=== PATIENT | female | born 1990 | race Hispanic/Latino ===

== ENCOUNTER 2020-01-26 07:46 | Outpatient (CLI) | payer OTHER, SELFPAY ==
[2020-01-26 09:04] LABS: Hematocrit 32.7 % (37.0-47.0); Hemoglobin 10.8 g/dL (12.0-15.0)
[2020-01-26 09:15] LABS: Glucose 1 Hour PP 50gm Dose 94 mg/dL
[2020-01-26 09:56] LABS: HIV 1/2 Ab P24 Ag Result Negative (Negative)
== END 2020-01-26 07:47 | disposition home or self-care (01) ==
PROVIDERS: PCP Emergency Medicine; Visit Provider Obstetrics & Gynecology
DX: Z34.80 Encounter for supervision of other normal pregnancy, unspecified trimester (principal)
CPT/HCPCS: 36415; 82947; 85014; 85018; 86703; G0432

== ENCOUNTER 2020-03-30 12:34 | Inpatient (IN) | payer OTHER, SELFPAY ==
[2020-03-29 12:30] VITALS: BMI 27.6
[2020-03-30] VITALS (100 sets, daily range): BP systolic 76–121; BP diastolic 38–97; PULSE 77–188; TEMP 36.4–36.9; O2SAT 97–100
--- NOTE | 2020-03-30 13:37 | P.HP_ITS ---
H&P: HPI History of Present Illness Chief complaint: SROM Narrative: 30 y/o G1 at 37 1/7 weeks here after leakage of fluid beginning at 0500 today. Some contractions. GBS neg. Opos, RI, HepBSAg neg, RPR neg, HIV neg, GCT normal. LMP 07/14/19 giving a due date of 04/19/2020, consitstent with US at 6w2d. Review of Systems Review of Systems: All systems reviewed & are unremarkable except as noted in HPI and below [facility] Surgical History Surgical History (Updated 03/30/20 @ 13:40 by Aron Adams MD) History of colon resection Family History Family History Mother Depression Sibling Depression Autism Cerebral palsy Social History Social History Substance use: never Spiritual care concerns: No Meds Home Medications and Allergies Home Medications Medication Instructions Recorded Confirmed Type PNV cmb#95-ferrous fumarate-FA 1 tablet PO DAILY 03/23/20 03/23/20 History [] famotidine [Pepcid AC] 10 mg PO PRN 03/23/20 History Allergies Allergy/AdvReac Type Severity Reaction Status Date / Time mushroom Allergy Itching Verified 03/23/20 15:39 Exam Const: Orientation/consciousness: patient oriented x3 Other: Well- developed, well-nourished female in no acute distress. Neck: Thyroid: thyroid normal Lymphatic: no lymphadenopathy noted (in neck, axilla or inguinal nodes) Resp: Effort & Inspection: normal respiratory effort Auscultation: clear to auscultation bilaterally Cardio: Rate: regular rate Rhythm: regular rhythm Heart sounds: S1 normal heart sound present and S2 normal heart sound present GI: Other: ABD: Soft, nontender, nondistended. Gravid. Bedside ultrasound exam by me confirms vertex presentation. NST reactive TOCO: contractions irregularly : General: Yes no CVA tenderness Other: Cervix closed / thick. RomPlus pos. Back/Spine/Pelvis: Back: no CVA tenderness Skin: General skin exam: normal color and no rashes or lesions noted Neuro: General: patient oriented x3 Extrem: Other: Extremities: nontender with no edema Psych: Mental Status: mental status grossly normal Affect: normal affect Assessment and Plan Assessment and plan (1) Spontaneous rupture of membranes: Status: Acute Assessment and Plan: Augment labor as needed. Anticipate .
[2020-03-30] MEDS: LACTATED RINGERS 1,000 ML 125 ML IV CONT ×3 (13:38→17:30)
[2020-03-30] MEDS: OXYTOCIN 30 UNITS/NS 500 ML 30 UNITS/500 ML BAG 6 UNITS IV CONT (13:39)
--- NOTE | 2020-03-30 13:41 | LDADM ---
This patient, Sallie Lopez, was admitted to Labor/Delivery/Recovery 103 on 03/30/20 at 12:34. Plans for labor, pain management and were discussed with patient. Patient/family oriented to hospital policies and general routines including ID bracelet, bed and alarms, visiting hours, pain management, procedures, bathroom and other care routines, personal items, smoking policy, room service/diet and guest tray routines, security routines, and visiting hours. Patient/Family are encouraged to report perceived risks to care and to ask questions if they do not understand what they are told or what they should do. See OBIX for further documentation.
[2020-03-30 13:50] LABS: Basophils Percent Auto 0.5 % (0.2-1.2); Eosinophils Absolute Auto 0.1 K/mm3 (0-0.3); Eosinophils Percent Auto 0.7 % (0-4.4); Hematocrit 35.7 % (37.0-47.0); Hemoglobin 12.1 g/dL (12.0-15.0); Immature Granulocyte Absolute 0.17 K/mm3 (0.00-0.031); Lymphocytes Absolute Auto 1.72 K/mm3 (0.9-3.2); Lymphocytes Percent Auto 20.5 % (18.3-44.2); Mean Corpuscular HGB Conc 33.9 g/dl (32-36); Mean Corpuscular Hemoglobin 32.7 pg (26-34); Mean Corpuscular Volume 96.5 fl (80-100); Mean Platelet Volume 11.5 fl (7.4-10.4); Monocytes Percent Auto 12.3 % (2.6-8.5); Neutrophils Absolute Auto 5.4 K/mm3 (1.3-6.7); Platelet Count Result 189 k/mm3 (150-375); White Blood Count 8.4 K/mm3 (4.5-10.0)
--- NOTE | 2020-03-30 14:49 | P.PNAN_ITS ---
Anes - Eval Pre Procedure Procedure: Labor Pain Management Date/Time: 03/30/20 14:49 Surgeon: Aron Adams MD Preop Diagnosis: Pain During Labor Pre Op Diagnosis: SROM Patient Data Age: 30 Gender: F Height: Weight: Last Vital Signs Pulse 77 03/30/20 14:45 BP 103/73 03/30/20 14:45 Allergies Allergy/AdvReac Type Severity Reaction Status Date / Time mushroom Allergy Itching Verified 03/23/20 15:39 Home Medications Medication Instructions Recorded Confirmed Type PNV cmb#95-ferrous fumarate-FA 1 tablet PO DAILY 03/23/20 03/30/20 History [] famotidine [Pepcid AC] 10 mg PO DAILY PRN 03/23/20 03/30/20 History Laboratory Tests 03/30/20 03/30/20 03/30/20 13:32 13:32 13:32 WBC 8.4 K/mm3 K/mm3 (4.5-10.0) RBC 3.70 M/mm3 L M/mm3 (4.2-5.4) Hgb 12.1 g/dL g/dL (12.0-15.0) Hct 35.7 % L % (37.0-47.0) MCV 96.5 fl fl (80-100) MCH 32.7 pg pg (26-34) MCHC 33.9 g/dl g/dl (32-36) RDW 15.0 % H % (11.5-14.5) Plt Count 189 k/mm3 k/mm3 (150-375) MPV 11.5 fl H fl (7.4-10.4) Immature Gran % (Auto) 2.0 % H % (0-0.5) Neut % (Auto) 64.0 % % (45.5-73.1) Lymph % (Auto) 20.5 % % (18.3-44.2) [place] % (Auto) 12.3 % H % (2.6-8.5) Eos % (Auto) 0.7 % % (0-4.4) Baso % (Auto) 0.5 % % (0.2-1.2) Lymph # (Auto) 1.72 K/mm3 K/mm3 (0.9-3.2) [place] # (Auto) 1.0 K/mm3 H K/mm3 (0.1-0.6) Eos # (Auto) 0.1 K/mm3 K/mm3 (0-0.3) Baso # (Auto) 0.0 K/mm3 K/mm3 (0.0-0.1) Abs Immat Gran (auto) 0.17 K/mm3 H K/mm3 (0.00-0.031) Absolute Neuts (auto) 5.4 K/mm3 K/mm3 (1.3-6.7) Absolute Nucleated RBC 0.0 K/mm3 K/mm3 (0.0-0.012) Nucleated RBC % 0.0 % % (0.0-0.2) RPR Pending Blood Type O Positive Antibody Screen Negative : gestational age (EDC 04/19/20) Patient hx anesthesia problems: none Family hx anesthesia problems: none Prior Surgeries: colon resection, wisdom teeth PMFSH Family History Family History Mother Depression Sibling Depression Autism Cerebral palsy Social History Social History Smoking status: Never smoker Substance use: never Spiritual care concerns: No Exam Day of Procedure 03/30/20 14:49
--- NOTE | 2020-03-30 21:37 | PM.OBPRVD ---
OB - Delivery Note Procedure Procedure: Patient pushed for a spontaneous vaginal delivery. The fetus was delivered atraumatically and placed on the maternal abdomen. The cord was clamped and cut after 1 minute of life. The cord was double clamped and cut and a segment of cord was collected for cord gases. Cord blood was collected for blood type and Coomb's testing. The placenta delivered spontaneously and was noted to be intact. The perineum was inspected and there was a 2nd degree perineal laceration. The laceration was repaired with 3-0 vicryl in the usual fashion. The uterus was firm and good hemostasis was noted. The patient and fetus were stable in the delivery room. Intrapartal events: None Induction method: none Delivery augmentation: pitocin Delivery monitor: external FHT Route of delivery: Episiotomy description: None Laceration description: Perineal - 2nd Degree Delivery repair: vicryl Specimen: No Estimated blood loss (mL): 300 Anesthesia type: Epidural Disposition: floor () Complications: No immediate complications Baby Date of : 03/30/20 Time of : 21:16 Weeks of gestation at delivery: 37 Infant gender: Female Weight (pounds): 7 Weight (ounces): 7 presentation: vertex position: Left Occiput Anterior Placenta delivery description: Spontaneous cord vessel description: 3 Vessels score one minute: 8 score five minutes: 9
[2020-03-30] MEDS: OXYTOCIN 30 UNITS/NS 500 ML 30 UNITS/500 ML BAG 125 UNITS IV CONT (22:10)
[2020-03-30] MEDS: IBUPROFEN 600 MG TABLET PO (22:35)
--- NOTE | 2020-03-31 00:03 | PC.NURSE ---
Patient transferred to post room # 291 via wheelchair. Support person present. Oriented to unit, room, information board, rooming in, admission packet and security measures. Patient verbalizes understanding.
[2020-03-31 00:10] VITALS: BP 106/58; PULSE 96; RESP 16; TEMP 37.1
[2020-03-31] MEDS: BENZOCAINE 20% AER SPR (*SP) 56 GM CAN 1 SPRAY TOPICAL (00:13)
[2020-03-31] MEDS: WITCH HAZEL 40 PADS 1 PAD TOPICAL (00:13)
--- NOTE | 2020-03-31 02:40 | PC.NURSE ---
Mother taken downstairs per wheelchair to see in level 2 nursery.
[2020-03-31 05:50] LABS: Hematocrit 31.9 % (37.0-47.0); Hemoglobin 10.6 g/dL (12.0-15.0)
[2020-03-31] MEDS: IBUPROFEN 600 MG TABLET PO (06:00)
--- NOTE | 2020-03-31 07:02 | PM.DS ---
DS: Admitting Diagnosis Admitting Diagnosis Admitting Diagnosis: term iup/downs DS: Summary Time Spent with Patient Time attestation: Total time spent providing and/or coordinating discharge services: Exam Const: General: no acute distress Eyes: General: appearance normal, both eyes and all related structures Neck: Neck: supple and no JVD Thyroid: thyroid normal Resp: Effort & Inspection: normal respiratory effort Auscultation: clear to auscultation bilaterally Cardio: Rate: regular rate Rhythm: regular rhythm GI: Inspection: non-distended GI Palp: Yes Soft to palpation, No Tenderness to palpation present (GI) and No Guarding due to palpation present (GI) Auscultation: normal bowel sounds : General: Yes bladder normal to palpation External Female Exam: normal external appearance Speculum Exam - Vagina: normal vaginal discharge and No vaginal bleeding Speculum Exam - Cervix: nontender Bimanual exam- vagina & uterus: bladder normal to palpation and No Cervical tenderness present OB/external & speculum: No vaginal bleeding Skin: General skin exam: no rashes or lesions noted Extrem: General: normal to inspection and no edema Psych: Mental Status: mental status grossly normal Affect: normal affect DS: Data Data Completed and Pending Labs on day of discharge: Labs from last 24 hours 03/31/20 03/30/20 03/30/20 04:33 13:32 13:32 WBC RBC Hgb 10.6 L Hct 31.9 L MCV MCH MCHC RDW Plt Count MPV Immature Gran % (Auto) Neut % (Auto) Lymph % (Auto) [place] % (Auto) Eos % (Auto) Baso % (Auto) Lymph # (Auto) [place] # (Auto) Eos # (Auto) Baso # (Auto) Abs Immat Gran (auto) Absolute Neuts (auto) Absolute Nucleated RBC Nucleated RBC % RPR Pending Blood Type O Positive Antibody Screen Negative 03/30/20 13:32 WBC 8.4 RBC 3.70 L Hgb 12.1 Hct 35.7 L MCV 96.5 MCH 32.7 MCHC 33.9 RDW 15.0 H Plt Count 189 MPV 11.5 H Immature Gran % (Auto) 2.0 H Neut % (Auto) 64.0 Lymph % (Auto) 20.5 [place] % (Auto) 12.3 H Eos % (Auto) 0.7 Baso % (Auto) 0.5 Lymph # (Auto) 1.72 [place] # (Auto) 1.0 H Eos # (Auto) 0.1 Baso # (Auto) 0.0 Abs Immat Gran (auto) 0.17 H Absolute Neuts (auto) 5.4 Absolute Nucleated RBC 0.0 Nucleated RBC % 0.0 RPR Blood Type Antibody Screen Discharge Plan Discharge Attending physician on discharge: Peterson Singh Discharging Clinician: Db Bailey Patient Disposition: Home, Self-Care Activity: may shower, no straining and pelvic rest Diet: heart healthy Patient Instructions: Antibiotic Form Stand Alone Forms: General Discharge Information Follow-up/Referrals: Db Bailey MD [Physician] - Aron Adams MD [Physician] - Discharge Medications: Continued famotidine [Pepcid AC] 10 mg Tablet 10 mg PO DAILY PRN (Reason: Heartburn) RF: 0 PNV cmb#95-ferrous fumarate-FA [] 28 mg iron- 800 mcg Tablet 1 tablet PO DAILY RF: 0 Date of admission: 03/30/20 12:34 Primary Care Provider: Cipriano Flores Admitting Provider: Aron Adams Attending physician on admission: Aron Adams
--- NOTE | 2020-03-31 07:04 | PM.OBPNVD ---
OB - PN: Subj Subjective Date/time seen: 03/31/20 07:04 Patient comments: no complaints and pain well controlled Narrative: baby transferred OB - PN: Obj Data Labs CBC & Chem 7: 03/31/20 04:33 Labs: Laboratory Results - last 24 hr 03/30/20 03/30/20 03/31/20 13:32 13:32 04:33 WBC 8.4 RBC 3.70 L Hgb 12.1 10.6 L Hct 35.7 L 31.9 L MCV 96.5 MCH 32.7 MCHC 33.9 RDW 15.0 H Plt Count 189 MPV 11.5 H Immature Gran % (Auto) 2.0 H Neut % (Auto) 64.0 Lymph % (Auto) 20.5 [place] % (Auto) 12.3 H Eos % (Auto) 0.7 Baso % (Auto) 0.5 Lymph # (Auto) 1.72 [place] # (Auto) 1.0 H Eos # (Auto) 0.1 Baso # (Auto) 0.0 Abs Immat Gran (auto) 0.17 H Absolute Neuts (auto) 5.4 Absolute Nucleated RBC 0.0 Nucleated RBC % 0.0 Blood Type O Positive Antibody Screen Negative OB - PN A/P Plan day: 1 Plan: routine care, discharge home and follow up 6 weeks Time Spent With Patient Time: Total time spent is greater than 50% in coordination of care (as documented) at patient's floor/unit and/or counseling patient: Time with patient: less than 15 minutes Review of Systems Review of Systems: All systems reviewed & are unremarkable except as noted in HPI and below Exam Const: General: no acute distress Eyes: General: appearance normal, both eyes and all related structures Neck: Neck: supple and no JVD Thyroid: thyroid normal Resp: Effort & Inspection: normal respiratory effort Auscultation: clear to auscultation bilaterally Cardio: Rate: regular rate Rhythm: regular rhythm GI: Inspection: non-distended GI Palp: Yes Soft to palpation, No Tenderness to palpation present (GI) and No Guarding due to palpation present (GI) Auscultation: normal bowel sounds : General: Yes bladder normal to palpation External Female Exam: normal external appearance Speculum Exam - Vagina: normal vaginal discharge and No vaginal bleeding Speculum Exam - Cervix: nontender Bimanual exam- vagina & uterus: bladder normal to palpation and No Cervical tenderness present OB/external & speculum: No vaginal bleeding Skin: General skin exam: no rashes or lesions noted Extrem: General: normal to inspection and no edema Psych: Mental Status: mental status grossly normal Affect: normal affect
[2020-03-31 07:56] LABS: Rapid Plasma Reagin Non-Reactive (NonReactive)
[2020-03-31 08:35] VITALS: BP 106/71; PULSE 96; RESP 18; TEMP 37.3; O2SAT 99
[2020-03-31] MEDS: DOCUSATE SODIUM 100 MG CAPSULE PO (08:38)
[2020-03-31] MEDS: ACETAMINOPHEN 325 MG TABLET 650 MG PO (08:38)
[2020-03-31] MEDS: MULTIVIT/MIN/PREN/FOL AC/IRON TABLET 1 TAB PO (08:38)
== END 2020-03-31 09:45 | disposition home or self-care (01) | DRG 807 ==
LOC: ANHOB2 03-31 07:30 → ANHLDR 04-01 13:07 → ANHOB2 04-01 13:07
PROVIDERS: Student in an Organized Health Care Education/Training Program; Admitting Provider Obstetrics & Gynecology; PCP Emergency Medicine; Visit Provider Obstetrics & Gynecology
DX: O99.62 Diseases of the digestive system complicating childbirth (principal); Z37.0 Single live birth; Z3A.37 37 weeks gestation of pregnancy; K21.9 Gastro-esophageal reflux disease without esophagitis; O70.1 Second degree perineal laceration during delivery; O36.8330 Maternal care for abnormalities of the fetal heart rate or rhythm, third trimester, not applicable or unspecified
CPT/HCPCS: 36415; 85014; 85018; 85025; 86592; 86850; 86900; 86901; A9270; J2590; J2795; J7120

== ENCOUNTER 2020-05-23 16:51 | Outpatient (CLI) | payer OTHER, SELFPAY ==
--- NOTE | ~2020-05-23 | US_ITS ---
US breast LT complete DATE: 05/23/2020 17:26 INDICATION: Left breast nodularity TECHNIQUE: Real-time and color flow imaging of the complete left breast COMPARISON: 11/03/2019 complete left breast ultrasound FINDINGS: There are cysts scattered throughout the left breast, largest measuring 3.3 mm. No suspicious solid lesion or shadowing is evident. IMPRESSION: BI-RADS Category 2: Benign Reviewed, dictated and finalized at [facility]. Reviewed, dictated and finalized at [facility]. IMPRESSION: BI-RADS Category 2: Benign
== END 2020-05-23 16:52 | disposition home or self-care (01) ==
PROVIDERS: PCP Obstetrics & Gynecology; Visit Provider Obstetrics & Gynecology
DX: R92.8 Other abnormal and inconclusive findings on diagnostic imaging of breast (principal)
CPT/HCPCS: 76641

== ENCOUNTER 2022-07-16 13:56 | Outpatient (CLI) | payer BC, SELFPAY ==
--- NOTE | ~2022-07-16 | CT_ITS ---
EXAMINATION: CT abdomen pelvis w con DATE: 07/16/2022 14:28 INDICATION: Periumbilical abdominal pain, nausea and vomiting. History of small bowel obstruction and colon resection. TECHNIQUE: Computed tomography (CT) of the abdomen and pelvis was performed with 100 CC Omnipaque 350 intravenous contrast. Automated exposure control and iterative reconstruction technique were employe d. Exam dose: 312.80 mGy-cm total exam DLP. COMPARISON: 08/13/2019 complete abdominal ultrasound examination FINDINGS: Bilateral fat-containing foramen of Bochdalek hernias. Normal heart size. No pericardial or pleural effusion. The lung bases are clear. The liver, gallbladder, bile ducts, spleen, pancreas, and adrenal glands and kidneys are unremarkable . No urinary tract calculus or hydroureteronephrosis. Normal caliber of the abdominal aorta. No intraperitoneal or retroperitoneal or pelvic mass lesion or adenopathy or ascites. Uterus, adnexal areas and urinary bladder are unremarkable. An approximately 6.7 mm calcified appendicolith is noted, with appendiceal dilatation up to approxima tely 12 mm, with some enhancement of the appendiceal wall. There is periappendiceal fat stranding/inf lammation. Possible small approximately 5 x 8 mm abscess along the right side of the distal appendix. No intraperitoneal free air is detected. Small fat-containing abdominal hernia IMPRESSION: Acute appendicitis with prominent periappendiceal inflammation, possible small perforate d abscess approximately 5 x 8 mm dimension on the right near the distal aspect of the appendix Dr. Morelos notified Dr. Flores's general medical practitionerAdiel Nguyen of the findings of acute appendicitis and possible rupture near the tip by telephone on 07/16/2022 at 1445 hours. Reviewed, dictated and finalized at [facility]. Reviewed, dictated and finalized at location [facility]. IMPRESSION: Acute appendicitis with prominent periappendiceal inflammation, po ssible small perforated abscess approximately 5 x 8 mm dimension on the right n ear the distal aspect of the appendix Dr. Morelos notified Dr. Flores's general medical practitionerAdiel Nguyen of the findings of acute amrit endicitis and possible rupture near the tip by telephone on 07/16/2022 at 1445 h ours.
== END 2022-07-16 13:57 | disposition home or self-care (01) ==
PROVIDERS: PCP Emergency Medicine; Visit Provider Emergency Medicine
DX: K35.890 Other acute appendicitis without perforation or gangrene (principal)
CPT/HCPCS: 74177; Q9967

== ENCOUNTER 2022-07-16 14:59 | Day surgery (SDC) | payer BC, SELFPAY ==
[2022-07-16] VITALS (9 sets, daily range): BP systolic 95–132; BP diastolic 52–83; PULSE 70–116; RESP 14–20; TEMP 36.6–37.2; O2SAT 98–100
--- NOTE | 2022-07-16 15:30 | ED.ABDPAIN ---
HPI - Abdominal Pain General Chief Complaint: Abdominal Pain Stated Complaint: CT SCAN SHOWS RUPTURED APPENDIX Time Seen by Provider: 07/16/22 15:00 Source: RN notes reviewed History of Present Illness HPI narrative: Patient presents emergency department from outpatient radiology for appendicitis. Patient has been having abdominal pain for the past 2 days pain is located in the lower mid abdomen described as aching in nature and does not radiate patient states she has been have associated nausea and vomiting with the symptoms. She denies any fevers or chills chest pain or shortness of breath patient and her PCP and had an outpatient CT scan today showing appendicitis with a questionable small perforation and was sent to the ER for further evaluation Related Data Home Medications Medication Instructions Recorded Confirmed famotidine 10 mg tablet (Pepcid AC) 10 mg PO DAILY PRN Heartburn 03/23/20 03/30/20 vit no.95-ferrous 1 tablet PO DAILY 03/23/20 03/30/20 fumarate 28 mg-folic acid 800 mcg tablet () Allergies Allergy/AdvReac Type Severity Reaction Status Date / Time mushroom Allergy Itching Verified 07/16/22 15:16 Review of Systems Review of Systems: Gen.: Denies fevers or chills ENT: Denies congestion Respiratory: Denies shortness of breath or cough CV: Denies chest pain or palpitations GI: HPI denies burning, urgency, frequency or hematuria Musculoskeletal: Denies back pain or muscle pain Neuro: Denies numbness, tingling, weakness or focal weakness Skin: Denies rash Except as documented, all other systems reviewed and negative PMFSH Past Medical History Medical History (Updated 07/16/22 @ 16:32 by Ray Iverson DO) Patient denies significant medical history Surgical History Surgical History (Updated 07/16/22 @ 16:12 by Tr Fitch DO) Hx of resection of small bowel Family History Family History Mother Depression Sibling Depression Autism Cerebral palsy Social History Social History Smoking status: Never smoker Substance use: never Spiritual care concerns: No Exam Narrative: APPEARANCE: No acute distress, nontoxic, resting in bed HEENT: Normocephalic, atraumatic, OMM RESPIRATORY: No respiratory distress, clear to auscultation bilaterally with no rhonchi wheezing or rales CARDIOVASCULAR: RRR s murmur ABDOMINAL: Soft nondistended tender palpation right lower quadrant and left lower quadrant no tenderness right upper quadrant left upper quadrant no rebound or guarding MUSCULOSKELETAl: Moves all extremities. No clubbing, cyanosis or edema. NEURO: Awake and alert. Following commands, speech normal, no focal deficits SKIN:: Warm, dry. Normal Color PSYCHIATRIC: Normal affect/mood Course Course Emergency Course: Reviewed patient's CT scan from earlier today showing appendicitis with possible small perforation Discussed with Dr. Fitch will plan to take to the OR today Patient plan for surgery all questions Vital Signs Vital signs: Vital Signs Temperature 98.9 F 07/16/22 15:12 Pulse Rate 116 H 07/16/22 15:12 Respiratory Rate 14 07/16/22 15:12 Blood Pressure 130/83 07/16/22 15:12 Pulse Oximetry 98 07/16/22 15:12 Oxygen Delivery Room Air 07/16/22 15:12 Temperature 98.9 F 07/16/22 15:12 Pulse Rate 70 07/16/22 15:56 Respiratory Rate 18 07/16/22 15:56 Blood Pressure 132/68 07/16/22 15:56 Pulse Oximetry 99 07/16/22 15:56 Oxygen Delivery Room Air 07/16/22 15:12 MDM - Abdominal Pain Lab Data Result diagrams: 07/16/22 15:25 07/16/22 15:25 Labs: Lab Results 07/16/22 07/16/22 07/16/22 Range/Units 15:25 15:25 15:25 WBC 18.9 H (4.5-10.0) K/mm3 RBC 4.51 (4.2-5.4) M/mm3 Hgb 14.9 D (12.0-15.0) g/dL Hct 45.0 (37.0-47.0) % MCV 99.8
[2022-07-16 15:34] LABS: Basophils Absolute Auto 0.1 K/mm3 (0.0-0.1); Basophils Percent Auto 0.3 % (0.2-1.2); Eosinophils Percent Auto 0.1 % (0-4.4); Hemoglobin 14.9 g/dL (12.0-15.0); Immature Granulocyte Absolute 0.08 K/mm3 (0.00-0.031); Immature Granulocyte Percent A 0.4 % (0-0.5); Lymphocytes Absolute Auto 1.22 K/mm3 (0.9-3.2); Lymphocytes Percent Auto 6.5 % (18.3-44.2); Mean Corpuscular HGB Conc 33.1 g/dl (32-36); Mean Corpuscular Volume 99.8 fl (80-100); Mean Platelet Volume 10.8 fl (7.4-10.4); Monocytes Absolute Auto 1.8 K/mm3 (0.1-0.6); Monocytes Percent Auto 9.3 % (2.6-8.5); Neutrophils Absolute Auto 15.8 K/mm3 (1.3-6.7); Neutrophils Percent Auto 83.4 % (45.5-73.1); Platelet Count Result 214 k/mm3 (150-375); Red Blood Count 4.51 M/mm3 (4.2-5.4); White Blood Count 18.9 K/mm3 (4.5-10.0)
[2022-07-16] MEDS: ONDANSETRON INJ 4 MG/2 ML VIAL IV PUSH (15:34)
[2022-07-16] MEDS: MORPHINE SULFATE (*CRX) 4 MG/ML INJ IV PUSH (15:34)
[2022-07-16] MEDS: SODIUM CHLORIDE 0.9% IV 1,000 ML 999 ML IV CONT (15:35)
[2022-07-16 15:41] LABS: Appearance Urine Clear (Clear); Bilirubin Urine Negative (Negative); Blood Urine 1+ (Negative); Color Urine Yellow (Yellow); Glucose Urine UA Negative (Negative); Ketones Urine 3+ mg/dL (Negative); Leukocyte Esterase Ur Negative LEU/UL (Negative); Nitrate Urine Negative (Negative); Protein Urine 1+ mg/dL (Negative); Urobilinogen Urine 0.2 mg/dL (<2.0)
[2022-07-16 15:49] LABS: Bacteria Urine Trace /hpf; Mucus Urine Few /lpf; Squamous Epithelial Cell Urine Many /hpf (Few); WBC Urine 0-3 /hpf
[2022-07-16 15:51] LABS: Add Urine Microscopic? YES
--- NOTE | 2022-07-16 16:10 | WPDHPUPDATE1 ---
History and Physical Update Update Date/Time: 07/16/22 16:10 History and Physical has been reviewed, including an updated exam of the patient. There are NO changes in the patient's condition. Risks, benefits, and alternatives have been discussed and questions answered. Patient agrees to proceed with procedure.
--- NOTE | 2022-07-16 16:10 | PM.IMHP ---
H&P: HPI History of Present Illness Date/Time: 07/16/22 16:10 Chief Complaint: Right lower quadrant pain Narrative: This is a 32-year-old woman who presented with right lower quadrant pain that started 2 days ago. She thought she had gotten food poisoning at 1st and was experiencing pain with nausea and vomiting. The pain persisted and was localizing more to the right lower quadrant. She denies any fevers. She went to her PCP this morning and was sent for a CT which showed evidence of acute appendicitis with possible perforation. She was then sent to the emergency department for further treatment. Review of Systems Review of Systems: All systems reviewed & are unremarkable except as noted in HPI and below Eyes: Eyes: Denies change in vision ENT: Denies hearing loss, Denies neck pain and Denies sore throat Cardiovascular: Cardiovascular: Denies chest pain and Denies dyspnea Respiratory: Respiratory: Denies cough, Denies dyspnea and Denies wheezing Genitourinary: Genitourinary: Denies hematuria and Denies dysuria Musculoskeletal: Musculoskeletal: Denies arthralgias, Denies joint swelling and Denies neck pain Allergic/Immunologic: Allergic/Immunologic: Denies wheezing PMFSH Past Medical History Medical History (Updated 07/16/22 @ 16:14 by Tr Fitch DO) Patient denies significant medical history Surgical History Surgical History (Updated 07/16/22 @ 16:12 by Tr Fitch DO) Hx of resection of small bowel Family History Family History Mother Depression Sibling Depression Autism Cerebral palsy Social History Social History Smoking status: Never smoker Substance use: never Spiritual care concerns: No Meds Home Medications and Allergies Home Medications Medication Instructions Recorded Confirmed Type famotidine 10 mg tablet (Pepcid AC) 10 mg PO DAILY PRN Heartburn 03/23/20 03/30/20 History vit no.95-ferrous 1 tablet PO DAILY 03/23/20 03/30/20 History fumarate 28 mg-folic acid 800 mcg tablet () ibuprofen 600 mg tablet 600 mg PO Q6H PRN cramps #30 tabs 03/31/20 Rx Allergies Allergy/AdvReac Type Severity Reaction Status Date / Time mushroom Allergy Itching Verified 07/16/22 15:16 Vital Signs Vital Signs - 24 hr 07/16/22 15:12 07/16/22 15:56 Temperature 37.2 C Pulse Rate 116 H 70 Respiratory Rate 14 18 Blood Pressure 130/83 132/68 Pulse Oximetry 98 99 Oxygen Delivery Room Air Exam Const: General: alert; No acute distress Orientation/consciousness: patient oriented x3 Limitations: no limitations HENMT: Head: normocephalic and atraumatic Ears: hearing grossly normal bilaterally General nose exam: Normal external nose present and Normal nares present Mouth: Yes Normal oral and palatal mucosa present and Yes moist mucous membranes Eyes: General: appearance normal, both eyes and all related structures Conjunctivae: conjunctivae normal Sclera: sclerae normal Pupils: Equal, round and reactive pupils present EOM: EOMs intact bilaterally Neck: Neck: normal visual inspection, full ROM, no lymphadenopathy, supple and no JVD Lymphatic: no lymphadenopathy noted Chest: Chest palpation & inspection: normal inspection of the chest Resp: Effort & Inspection: normal respiratory effort and able to speak in complete sentences Auscultation: clear to auscultation bilaterally Percussion: percussion normal Cardio: Jugular venous distension: no JVD Rate: regular rate Rhythm: regular rhythm Heart sounds: S1 normal heart sound present and S2 normal heart sound present Peripheral pulses: Peripheral pulses 2+ throughout GI: Inspection: normal to inspection GI Palp: Yes Soft to palpation, Yes Tenderness to palpation present (GI) (RLQ), Yes Guarding due to palpation present (GI), No Hernia present and No Rebound tenderness prese
[2022-07-16] MEDS: LACTATED RINGERS 1,000 ML 30 ML IV CONT (16:35)
--- NOTE | 2022-07-16 16:35 | WPDANESEPPF ---
Anes - Initial Pre Proc Eval Procedure: Operation Date: 07/16/22 17:00 Proposed Procedures p Laparoscopic Appendectomy - Tr Fitch DO Date/Time: 07/16/22 16:35 Surgeon: Tr Fitch DO Pre Op Diagnosis: CT SCAN SHOWS RUPTURED APPENDIX Patient Data Age: 32 Gender: F Height: 1.6 m Weight: 62.7 kg Last Vital Signs Temp 37.2 C 07/16/22 15:12 Pulse 70 07/16/22 15:56 Resp 18 07/16/22 15:56 BP 132/68 07/16/22 15:56 Pulse Ox 99 07/16/22 15:56 O2 Del Method Room Air 07/16/22 15:12 Allergies Allergy/AdvReac Type Severity Reaction Status Date / Time mushroom Allergy Itching Verified 07/16/22 15:16 Home Medications Medication Instructions Recorded Confirmed Type famotidine 10 mg tablet (Pepcid AC) 10 mg PO DAILY PRN Heartburn 03/23/20 03/30/20 History vit no.95-ferrous 1 tablet PO DAILY 03/23/20 03/30/20 History fumarate 28 mg-folic acid 800 mcg tablet () ibuprofen 600 mg tablet 600 mg PO Q6H PRN cramps #30 tabs 03/31/20 Rx Laboratory Tests 07/16/22 07/16/22 07/16/22 15:25 15:25 15:25 WBC 18.9 K/mm3 H K/mm3 (4.5-10.0) RBC 4.51 M/mm3 M/mm3 (4.2-5.4) Hgb 14.9 g/dL D g/dL (12.0-15.0) Hct 45.0 % % (37.0-47.0) MCV 99.8 fl fl (80-100) MCH 33.0 pg pg (26-34) MCHC 33.1 g/dl g/dl (32-36) RDW 13.0 % % (11.5-14.5) Plt Count 214 k/mm3 k/mm3 (150-375) MPV 10.8 fl H fl (7.4-10.4) Immature Gran % (Auto) 0.4 % % (0-0.5) Neut % (Auto) 83.4 % H % (45.5-73.1) Lymph % (Auto) 6.5 % L % (18.3-44.2) [place] % (Auto) 9.3 % H % (2.6-8.5) Eos % (Auto) 0.1 % % (0-4.4) Baso % (Auto) 0.3 % % (0.2-1.2) Lymph # (Auto) 1.22 K/mm3 K/mm3 (0.9-3.2) [place] # (Auto) 1.8 K/mm3 H K/mm3 (0.1-0.6) Eos # (Auto) 0.0 K/mm3 K/mm3 (0-0.3) Baso # (Auto) 0.1 K/mm3 K/mm3 (0.0-0.1) Abs Immat Gran (auto) 0.08 K/mm3 H K/mm3 (0.00-0.031) Absolute Neuts (auto) 15.8 K/mm3 H K/mm3 (1.3-6.7) Absolute Nucleated RBC 0.0 K/mm3 K/mm3 (0.0-0.012) Nucleated RBC % 0.0 % % (0.0-0.2) Sodium Pending Potassium Pending Chloride Pending Carbon Dioxide Pending Anion Gap Pending BUN Pending Creatinine Pending Estim Creat Clear Calc Pending Estimated GFR Pending Glucose Pending Calcium Pending Total Bilirubin Pending AST Pending ALT Pending Alkaline Phosphatase Pending Total Protein Pending Albumin Pending Urine Color Yellow (Yellow) Urine Appearance Clear (Clear) Urine pH 6.0 (5.0-9.0) Ur Specific [place] 1.010 (1.001-1.035) Urine Protein 1+ mg/dL H mg/dL (Negative) Urine Glucose (UA) Negative mg/dL mg/dL (Negative) Urine Ketones 3+ mg/dL H mg/dL (Negative) Ur Blood (Man) 1+ H (Negative) Urine Nitrate Negative (Negative) Urine Bilirubin Negative (Negative) Urine Urobilinogen 0.2 mg/dL mg/dL (<2.0) Leukocyte Esterase Rfl Negative LIBORIO/UL LIBORIO/UL (Negative) Urine RBC 6-10 /hpf H /hpf (0-2) Urine WBC 0-3 /hpf /hpf Ur Squamous Epith Cells Many /hpf H /hpf (Few) Urine Bacteria Trace /hpf /hpf Urine Mucus Few /lpf H /lpf Patient hx anesthesia problems: none Family hx anesthesia problems: none Results Review: All pre-operative results and documents have been reviewed as part of the pre-operative evaluation. [facility] Past Medical History Medical History (Updated 07/16/22 @ 16:32 by Ray Iverson DO) Patient denies si
[2022-07-16] MEDS: BUPIVACAINE/EPINEPHRINE 0.25% 50 ML VIAL 30 ML INFILTRATE (17:01)
[2022-07-16] MEDS: KETOROLAC 30 MG/ML VIAL (*BKC) IV PUSH (17:18)
--- NOTE | 2022-07-16 17:35 | W.PM.PROC2 ---
Procedure Note - Detailed Date of Procedure 07/16/22 Pre-op Diagnosis Acute appendicitis Post-op Diagnosis Same Procedure Performed Laparoscopic appendectomy Surgeon Tr Fitch, DO Anesthesia General and Local (0.5% bupivacaine with epinephrine) Indications This is a 32-year-old woman who presented to the emergency department with right lower quadrant abdominal pain that started about 2 days ago. Her pain was gradually worsening and she was experiencing nausea and vomiting yesterday. She was unable to get any relief from the pain at home, therefore she presented to her PCP this morning and a CT of her abdomen and pelvis was performed. This showed evidence of acute appendicitis. She was referred to the emergency department for further treatment. Discussions were made with the patient about treatment options and decision was made to proceed with urgent laparoscopic appendectomy, possible open. Findings Laparoscopic appendectomy was performed. The patient was found to have a few adhesions near the midline abdominal wall involving omentum. These adhesions came down easily with scissors with electrocautery. I was then able to identify the appendix in the right lower quadrant. This appeared indurated and dilated. There was some early signs of necrosis/gangrene but no clear evidence of perforation or abscess. The base of the appendix appeared healthy and viable. Upon looking into the pelvis, there was no evidence of abscess or purulence fluid in pelvis. There was 1 small area near the left pelvic wall that appeared to have possible endometriosis. No other pelvic abnormalities were noted. The appendix was removed and sent to the lab for pathology. Description of Procedure Procedure as well as risks, benefits, and alternatives were explained to the patient. The patient agreed to proceed. Written consent was obtained and placed in chart prior to procedure. The patient was brought back to surgical suite. She was placed supine on operating table. Time-out was done to confirm the patient and procedure. The patient was then intubated by the Anesthesia Department. Her abdomen was prepped and draped in sterile fashion using chlorhexidine prep. A 12 mm incision was made at the inferior portion of the umbilicus. Blunt dissection was carried out down to the linea alba. The linea alba was then incised using a 15 blade scalpel. Then bluntly entered into the peritoneal cavity. A 12 mm trocar was then inserted, and carbon dioxide insufflation was used to create a pneumoperitoneum. The camera was inserted and the abdomen was inspected. No immediate abnormalities were identified. The patient was then placed in slight Trendelenburg position and rotated to the left. A 5 mm incision was made in the suprapubic region in midline and a 5 mm trocar was inserted under direct visualization. A 5 mm incision was made in the left lower quadrant and a 5 mm trocar was inserted under direct visualization. The right lower quadrant was carefully inspected. The cecum was identified and then this was traced back to the appendix. The appendix was identified and grasped at the mesoappendix and lifted anteriorly. Careful blunt dissection was carried out at the base of the appendix through the mesoappendix using a [place] grasper. An Endo-TENZIN 45 mm blue load stapler was then advanced across the base of the appendix and clamped and fired. A white reload was then clamped across the mesoappendix and fired. This freed up our appendix completely. It was then placed in an EndoCatch bag and removed through the umbilical port. The staple lines were then inspected. Hemostasis appeared adequate and the staple lines appeared secure. The area was then irrigated with sterile saline. The pelvis was then carefully inspected and irrigated with sterile saline as well and the remainder of the abdomen was carefully inspected. The patient was then flattened out in bed. One final inspection wa
[2022-07-16] MEDS: oxyCODONE HCL (*CRX) 5 MG TAB IR PO (18:44)
== END 2022-07-16 19:15 | disposition home or self-care (01) ==
LOC: ANHED 15:10 → ANHSURGERY 15:10
PROVIDERS: Emergency Provider Emergency Medicine; PCP Emergency Medicine; Visit Provider Surgery
PROC: 0DTJ4ZZ Resection of Appendix, Percutaneous Endoscopic Approach (ICD-10-PCS; CPT 44970; principal; 2022-07-16 17:00)
DX: K35.80 Unspecified acute appendicitis (principal)
CPT/HCPCS: 44970; 36415; 81001; 81025; 85025; 88304; 96374; 96375; 99285; A9270; J0330; J1100; J1885; J2250; J2270; J2405; J2543; J3010; J7030; J7120

== ENCOUNTER 2023-05-21 09:48 | Observation (INO) | payer BC, SELFPAY ==
--- NOTE | 2023-05-21 09:48 | OBADM ---
This patient, Sallie Lopez, admitted to the OB room OB Post 116 for observation. Patient/family oriented to hospital policies and general routines including ID bracelet, bed and alarms, visiting hours, pain management, procedures, bathroom and other care routines, personal items, smoking policy, room service/diet, and visiting hours. Patient/Family are encouraged to report perceived risks to care and to ask questions if they do not understand what they are told or what they should do.
[2023-05-21 10:15] VITALS: BMI 29.0
[2023-05-21 10:20] VITALS: BP 110/65; PULSE 93
--- NOTE | 2023-05-21 12:10 | PC.NURSE ---
Dr. Soren Willis returned page. Informed of contractions seen on monitor q 2-8 min. Pt denies feeling contractions, except maybe an occasional one. Reactive tracing. Orders received.
[2023-05-21] MEDS: TERBUTALINE SULFATE 1 MG/ML VIAL 0.25 MG SUB-Q (12:27)
--- NOTE | 2023-05-21 16:17 | PM.OBTRLD ---
OB - Triage/Final Diagnosis Visit Information Date of evaluation: 05/21/23 Reason for evaluation: threatened labor Comments/Additional reasons for admission: I have assessed the risk for this patient, Sallie Lopez, and determined that she would benefit from observation care. Evaluation Vital signs: Vital Signs - 24 hr 05/21/23 10:20 Pulse Rate 93 Blood Pressure 110/65
== END 2023-05-21 14:10 | disposition home or self-care (01) ==
PROVIDERS: Admitting Provider Obstetrics & Gynecology; PCP Emergency Medicine; Visit Provider Obstetrics & Gynecology
DX: O47.9 False labor, unspecified (principal); O30.90 Multiple gestation, unspecified, unspecified trimester; Z3A.00 Weeks of gestation of pregnancy not specified
CPT/HCPCS: 96372; G0378; G0379; J3105

== ENCOUNTER 2023-05-24 15:44 | Observation (INO) | payer BC, SELFPAY ==
--- NOTE | 2023-05-24 15:44 | LDADM ---
This patient, Sallie Lopez, was admitted to OB Post 116 on 05/24/23 at 15:44. Plans for labor, pain management and were discussed with patient. Patient/family oriented to hospital policies and general routines including ID bracelet, bed and alarms, visiting hours, pain management, procedures, bathroom and other care routines, personal items, smoking policy, room service/diet and guest tray routines, infant security routines, and visiting hours. Patient/Family are encouraged to report perceived risks to care and to ask questions if they do not understand what they are told or what they should do. See OBIX for further documentation.
[2023-05-24 16:12] VITALS: BP 104/64; PULSE 103
[2023-05-24 16:15] VITALS: BP 106/60; PULSE 108
[2023-05-24] MEDS: TERBUTALINE SULFATE 1 MG/ML VIAL 0.25 MG SUB-Q (17:19)
[2023-05-24 17:27] LABS: Fetal Fibronectin Negative
--- NOTE | 2023-05-24 18:19 | PC.NURSE ---
Discharge instructions reviewed with patient. labor precautions reviewed with patient. Patient states understanding of all discharge instructions. Patient instructed to follow up with Dr. Adams this week as scheduled. Patient states understanding and denies questions.
--- NOTE | 2023-05-28 08:33 | PM.OBTRLD ---
OB - Triage/Final Diagnosis Visit Information Comments/Additional reasons for admission: I have assessed the risk for this patient, Sallie Lopez, and determined that she would benefit from observation care. Evaluation Laboratory results: Laboratory Tests 05/24/23 16:42 Fibronectin Negative Final Diagnosis (1) contractions: Code(s): O47.00 - False labor before 37 completed weeks of gestation, unspecified trimester Status: Acute
== END 2023-05-24 18:19 | disposition home or self-care (01) ==
PROVIDERS: Obstetrics & Gynecology; Admitting Provider Obstetrics & Gynecology; PCP Emergency Medicine; Visit Provider Obstetrics & Gynecology
DX: O47.03 False labor before 37 completed weeks of gestation, third trimester (principal); Z3A.32 32 weeks gestation of pregnancy
CPT/HCPCS: 82731; 96372; G0378; G0379; J3105

== ENCOUNTER 2023-07-04 05:02 | Inpatient (IN) | payer BC, SELFPAY ==
[2023-07-04] VITALS (141 sets, daily range): BP systolic 89–135; BP diastolic 56–93; PULSE 84–143; RESP 18; TEMP 36.4–37.3; O2SAT 90–100; BMI 32.8
[2023-07-04 06:51] LABS: Basophils Percent Auto 0.3 % (0.2-1.2); Eosinophils Absolute Auto 0.3 K/mm3 (0-0.3); Eosinophils Percent Auto 5.2 % (0-4.4); Hematocrit 37.6 % (37.0-47.0); Hemoglobin 11.9 g/dL (12.0-15.0); Immature Granulocyte Absolute 0.12 K/mm3 (0.00-0.031); Immature Granulocyte Percent A 1.8 % (0-0.5); Lymphocytes Absolute Auto 1.44 K/mm3 (0.9-3.2); Lymphocytes Percent Auto 21.8 % (18.3-44.2); Mean Corpuscular HGB Conc 31.6 g/dl (32-36); Mean Corpuscular Hemoglobin 30.4 pg (26-34); Mean Corpuscular Volume 95.9 fl (80-100); Mean Platelet Volume 12.4 fl (7.4-10.4); Monocytes Absolute Auto 0.7 K/mm3 (0.1-0.6); Monocytes Percent Auto 10.9 % (2.6-8.5); Nucleated Red Blood Cells Perc 0.3 % (0.0-0.2); Platelet Count Result 191 k/mm3 (150-375); Red Blood Count 3.92 M/mm3 (4.2-5.4); Red Cell Distribution Width 21.7 % (11.5-14.5); White Blood Count 6.6 K/mm3 (4.5-10.0)
[2023-07-04] MEDS: OXYTOCIN 30 UNITS/NS 500 ML 30 UNITS/500 ML BAG IV CONT (06:53)
[2023-07-04] MEDS: LACTATED RINGERS 1,000 ML 125 ML IV CONT ×2 (06:53→11:28)
--- NOTE | 2023-07-04 08:50 | WPDOBADMIT ---
Obstetrics - Admit Note Admission Note: record reviewed. Additions to the history and/or subsequent changes in the physical findings follow. 33 y/o at 38 weeks with mono/di twins, here for induction of labor. Has followed with MFM, growth has been concordant. Itchy rash c/w PUPPP. AVSS NST reactive TOCO: contractions every 2-3 min ABD soft, nontender, gravid. Bedside ultrasound vtx/vtx. EXT nontender Cervix 350/-2. AROM sac A with clear fluid. A: IUP at term with m/d twins, here for induction of labor. P: Oxytocin. Anticipate .
[2023-07-04] MEDS: diphenhydrAMINE HCl CAP 25 MG CAPSULE 50 MG PO (08:52)
--- NOTE | 2023-07-04 11:28 | WPDANESEPP ---
Anes - Eval Pre Procedure Procedure: labor epidural Date/Time: 07/04/23 11:28 Surgeon: Aron Adams Preop Diagnosis: pain during labor Pre Op Diagnosis: Induction of Labor Patient Data Age: 33 Gender: F Height: 1.6 m Weight: 84 kg Last Vital Signs Temp 36.4 C L 07/04/23 11:00 Pulse 103 H 07/04/23 11:14 BP 115/74 07/04/23 11:14 O2 Del Method Room Air 07/04/23 06:27 Allergies Allergy/AdvReac Type Severity Reaction Status Date / Time mushroom Allergy Itching Verified 07/04/23 06:47 Home Medications Medication Instructions Recorded Confirmed Type vit no.95-ferrous 1 tablet PO DAILY 03/23/20 07/04/23 History fumarate 28 mg-folic acid 800 mcg tablet () Laboratory Tests 07/04/23 07/04/23 06:17 06:18 WBC 6.6 K/mm3 (4.5-10.0) RBC 3.92 L M/mm3 (4.2-5.4) Hgb 11.9 L D g/dL (12.0-15.0) Hct 37.6 % (37.0-47.0) MCV 95.9 fl (80-100) MCH 30.4 pg (26-34) MCHC 31.6 L g/dl (32-36) RDW 21.7 H % (11.5-14.5) Plt Count 191 k/mm3 (150-375) MPV 12.4 H fl (7.4-10.4) Immature Gran % (Auto) 1.8 H % (0-0.5) Neut % (Auto) 60.0 % (45.5-73.1) Lymph % (Auto) 21.8 % (18.3-44.2) [place] % (Auto) 10.9 H % (2.6-8.5) Eos % (Auto) 5.2 H % (0-4.4) Baso % (Auto) 0.3 % (0.2-1.2) Lymph # (Auto) 1.44 K/mm3 (0.9-3.2) [place] # (Auto) 0.7 H K/mm3 (0.1-0.6) Eos # (Auto) 0.3 K/mm3 (0-0.3) Baso # (Auto) 0.0 K/mm3 (0.0-0.1) Abs Immat Gran (auto) 0.12 H K/mm3 (0.00-0.031) Absolute Neuts (auto) 4.0 K/mm3 (1.3-6.7) Absolute Nucleated RBC 0.0 K/mm3 (0.0-0.012) Nucleated RBC % 0.3 H % (0.0-0.2) RPR Pending Blood Type O Positive Antibody Screen Negative Patient hx anesthesia problems: none Family hx anesthesia problems: none Prior surgeries: hx of resection of small bowel s/p laparoscopic appendectomy Results Review: All pre-operative results and documents have been reviewed as part of the pre-operative evaluation. [facility] Past Medical History Medical History Patient denies significant medical history Surgical History Surgical History Hx of resection of small bowel S/P laparoscopic appendectomy 07/16/22 Family History Family History Mother Depression Sibling Depression Autism Cerebral palsy Social History Social History Smoking status: Never smoker Second hand tobacco smoke exposure: No Substance use: never Lack of Transportation: No Lack of Food: Never True Current Housing: I Have Housing Concerned About Future Housing: No Difficulty Paying Gas/Electric Bills: No Difficulty Paying for Meds: No Currently Unemployed: No Education: Bachelor's Degree Difficulty w/ Childcare or Family Care: No Spiritual care concerns: No Exam Day of Procedure 07/04/23 11:28 Patient weight: normal Heart: tachycardia Lungs: clear to auscultation Neurological: alert and oriented
--- NOTE | 2023-07-04 12:18 | PM.OBPNLAB ---
Pain Control Date/time seen: 07/04/23 12:18 Comments: Epidural was just placed. Feeling some relief. Pelvic Exam Dilation (cm): 5 Effacement (%): 50 station: -2 Comments: IUPC placed Contractions Contraction frequency: 3 Contraction pattern: Regular Status status: Category l Comments: x2 Assessment and Plan Comments: Continue labor.
--- NOTE | 2023-07-04 15:32 | PM.OBPRVD ---
OB - Delivery Note Procedure Delivery date: 07/04/23 Procedure: Induction of labor twins Induction method: Per Pitocin Protocol Delivery augmentation: Rupture of Membranes and Pitocin Delivery monitor: External FHT, External Uterine and Internal Uterine Route of delivery: Laceration Description: Perineal - 2nd Degree Delivery repair: vicryl (3-0) Specimen: Yes (cord blood, placenta) Quantitative Blood Loss (ml): 650 Anesthesia type: Epidural Disposition: PACU Complications: None Narrative: 33 y/o with monochorionic / diamniotic twin gestation at 38 weeks gestation who presented to the hospital for induction of labor. Oxytocin was administered intravenously. Amniotomy of sac A was performed with return of clear fluid. She received an epidural for pain control. Her labor progressed and her cervix dilated completely. She pushed with good effort and delivered the head of twin A to the perineum, followed by the body. The nose and mouth were bulb suctioned. After a delay, the cord was clamped and cut. The infant was handed off the field. Vertex presentation of twin B was confirmed digitally. Amniotomy of sac B yielded clear fluid. She pushed with good effort and delivered the head to the perineum, followed by the body. The nose and mouth were bulb suctioned. After a delay, the cord was clamped and cut, and the infant was handed off the field. Cord blood was collected. The placenta delivered spontaneously and was grossly normal in appearance. The usual 3 vessel cord was noted x 2. Cord B was tagged with a single cord clamp. A second degree midline perineal laceration was sustained. This was reapproximated using 3 0 Vicryl in the usual layered fashion. Excellent hemostasis resulted as did excellent reapproximation of the normal anatomy. Needle and instrument counts were correct. The patient was taken to recovery room in stable condition. The went to the nursery in stable condition. I was present and scrubbed for the entire delivery. Baby Weeks of gestation at delivery: 38 Twins 1: Date of : 07/04/23 Time of : 14:48 Weeks of gestation at delivery: 38 Infant gender: Female Weight (pounds): 7 Weight (ounces): 3 presentation: vertex position: Left Occiput Anterior Placental delivery description: Spontaneous and Normal Configuration Cord Vessel Description: 3 Vessels and Delayed Cord Clamping score one minute: 8 score five minutes: 9 2: Date of : 07/04/23 Time of : 14:53 Weeks of gestation at delivery: 38 gender: Female Weight (pounds): 7 Weight (ounces): 3 presentation: vertex position: Left Occiput Anterior Placental delivery description: Spontaneous and Normal Configuration Cord Vessel Description: 3 Vessels and Delayed Cord Clamping score one minute: 8 score five minutes: 9
--- NOTE | 2023-07-04 15:32 | PM.OBDSVD ---
DS: Admitting Diagnosis Discharge Date 07/06/23 Admitting Diagnosis IUP at 38 weeks Monochorionic diamniotic twins DS: Discharge Diagnosis Discharge Diagnosis (1) Twin delivered vaginally: Code(s): O30.009 - Twin , unspecified number of placenta and unspecified number of amniotic sacs, unspecified trimester Status: Acute OB - DS: Summary OB Procedures : Ultrasound OB Procedures Intrapartum: Spontaneous Vag Delivery OB Procedures: : None Time Spent with Patient Time attestation: Total time spent providing and/or coordinating discharge services: DS: Data Data Completed and Pending Labs on day of discharge: Labs from last 24 hours 07/04/23 07/04/23 06:18 06:17 WBC 6.6 RBC 3.92 L Hgb 11.9 L D Hct 37.6 MCV 95.9 MCH 30.4 MCHC 31.6 L RDW 21.7 H Plt Count 191 MPV 12.4 H Immature Gran % (Auto) 1.8 H Neut % (Auto) 60.0 Lymph % (Auto) 21.8 [place] % (Auto) 10.9 H Eos % (Auto) 5.2 H Baso % (Auto) 0.3 Lymph # (Auto) 1.44 [place] # (Auto) 0.7 H Eos # (Auto) 0.3 Baso # (Auto) 0.0 Abs Immat Gran (auto) 0.12 H Absolute Neuts (auto) 4.0 Absolute Nucleated RBC 0.0 Nucleated RBC % 0.3 H RPR Pending Blood Type O Positive Antibody Screen Negative Discharge Plan Discharge Attending physician on discharge: Aron Adams Consulting providers: Vj Barker Discharging Clinician: Aron Adams Patient Disposition: Home, Self-Care Activity: pelvic rest Diet: regular Discharge Instructions: Education: Mom and Baby Guide Given to: Mother Follow-Up: Call your delivering provider's office for an appointment to be seen in: 6 Weeks Mom and baby should come to the [facility] for the follow-up appointment. Appointment Date/Time: Saturday, July 08, 2023 at 9:00 a.m. What to expect at your follow-up visit: Blood Pressure Check Physical Assessment Call [phone] if you are unable to keep your appointment time. BREAST CARE: * Wear a snug supportive bra. * For engorgement discomfort: Breast Feeding: * Apply warm moist washcloths * Express milk as needed to relieve engorgement * Wear loose clothing Bottle Feeding: * May apply ice packs * For sore nipples: * Identify correct latch-on * Apply warm moist washcloths before and after nursing * Air dry nipples after nursing * May apply Lansinoh cream to nipples EPISIOTOMY/PERINEAL CARE: * Until bleeding stops, use your deandra bottle after urinating * Change your pad frequently throughout the day * You may take sitz baths several times a day (fill your bathtub with warm water and soak for 20 minutes.) Do NOT bathe in the water * No tub baths until seen by your physician - You may shower ACTIVITY: * Rest as much as possible. * Do not exercise or lift anything heavier than your baby (such as laundry or other children.) * Avoid stairs or driving as much as possible. * Do not put anything into the vagina. No douching, tampons, or sexual activity until seen by physician. NOTIFY PHYSICIAN IF YOU HAVE ANY QUESTIONS OR IF ANY OF THE FOLLOWING SYMPTOMS OCCUR: * If your perineum becomes red, swollen, or more painful than what you have experienced in the hospital. * If your vaginal bleeding becomes foul smelling. * If your vaginal bleeding becomes more heavy than a period or if your bleeding changes from pink to bright red. However, you may pass an occasional walnut-sized clot once or twice for the first week . * If you experience a sharp, shooting pain in you calves. * If you discover a hard, reddened area on your breast or if you experience flu-like symptoms. DIET: * Eat regular, well-balanced meals. * Drink plenty of fluids daily. If , drink to thirst. Call or return if temperature above 100.4? F, increa
[2023-07-04] MEDS: OXYTOCIN 30 UNITS/NS 500 ML 30 UNITS/500 ML BAG 125 UNITS IV CONT (15:54)
[2023-07-04 17:06] LABS: Rapid Plasma Reagin Non-Reactive (NonReactive)
[2023-07-04] MEDS: WITCH HAZEL 40 PADS 1 PAD TOPICAL (17:50)
[2023-07-04] MEDS: BENZOCAINE 20% AER SPR (*SP) 56 GM CAN 1 SPRAY TOPICAL (17:50)
--- NOTE | 2023-07-04 20:43 | ADMGEN ---
This patient, Sallie Lopez, was admitted to Labor/Delivery/Recovery 108-00. Patient/family oriented to hospital policies and general routines including ID bracelet, bed and alarms, visiting hours, pain management, procedures, bathroom and other care routines, personal items, smoking policy, room service/diet, and visiting hours. Information on how to activate the Rapid Response Team has been discussed. Patient/Family are encouraged to report perceived risks to care and to ask questions if they do not understand what they are told or what they should do.
[2023-07-04] MEDS: ACETAMINOPHEN 325 MG TABLET 650 MG PO (21:02)
[2023-07-04] MEDS: IBUPROFEN 600 MG TABLET PO (21:02)
[2023-07-05] VITALS: BP 110/68; PULSE 102; RESP 18; TEMP 37.4
[2023-07-05] MEDS: ACETAMINOPHEN 325 MG TABLET 650 MG PO ×2 (04:21→12:41)
[2023-07-05] MEDS: IBUPROFEN 600 MG TABLET PO ×3 (04:21→18:42)
[2023-07-05 05:31] LABS: Hematocrit 25.5 % (37.0-47.0); Hemoglobin 8.2 g/dL (12.0-15.0)
[2023-07-05 07:40] VITALS: BP 93/52; PULSE 98; RESP 18; TEMP 36.8; O2SAT 100
--- NOTE | 2023-07-05 08:45 | WPDANESPN ---
Anes - Prog Note Post-Op Date/Time: 07/05/23 08:45 Cardiovascular status: normal Respiratory status: normal Airway patency: baseline Mental status: baseline Post-Op hydration status: normal Vital Signs: Last Vital Signs Temp 37.4 C 07/05/23 00:00 Pulse 102 H 07/05/23 00:00 Resp 18 07/05/23 00:00 BP 110/68 07/05/23 00:00 Pulse Ox 100 07/04/23 19:24 O2 Del Method Room Air 07/04/23 20:43 Pain Score (VAS): 2/10 I/O: Intake & Output 07/04/23 07/05/23 07/05/23 23:59 07:59 15:59 Intake Total 500 Output Total 181 Balance 319 Laboratory Tests 07/05/23 04:14 07/04/23 07/05/23 06:17 04:14 Hgb 8.2 L D Hct 25.5 L RPR Non-reactive Post-procedural complaints: none Patient Feedback: Patient satisfied with anesthetic care.
[2023-07-05] MEDS: POLYSACCHARIDE IRON COMPLEX 150 MG CAPSULE PO ×2 (08:57→18:42)
[2023-07-05] MEDS: MULTIVIT/MIN/PREN/FOL AC/IRON TABLET 1 TAB PO (08:57)
[2023-07-05] MEDS: DOCUSATE SODIUM 100 MG CAPSULE PO ×2 (08:57→18:43)
--- NOTE | 2023-07-05 11:26 | PC.NURSE ---
1000 - 1005 Introductions were made. Mother verbalizes she is able to independently latch infants with appropriate positioning/alignment. She denies any nipple discomfort beyond initial latching sensitivity and is responsively . Infants are currently meeting outcomes for weight, output, jaundice and feeding frequencies of 8-12 times in 24 hours. Mother declines any additional assistance/education at this time. Mother is encouraged to call for assistance if her doesn?t latch or there is discomfort with latching. Mother voiced understanding of information shared and the mom reminded of the mom/baby guide for an additional resource and name written on the board.
[2023-07-05 12:05] VITALS: BP 110/60; PULSE 96; RESP 16; TEMP 36.8; O2SAT 99
[2023-07-05 20:15] VITALS: BP 111/74; PULSE 105; RESP 18; TEMP 36.1; O2SAT 100
[2023-07-06] MEDS: HYDROCORTISONE 2.5% CREAM 30 GM TUBE 1 APPLIC TOPICAL (00:30)
[2023-07-06] MEDS: IBUPROFEN 600 MG TABLET PO (04:51)
--- NOTE | 2023-07-06 06:59 | P.PNOB_ITS ---
OB - PN: Subj Subjective Date/time seen: 07/06/23 06:59 Patient comments: no complaints and pain well controlled baby status: doing well OB - PN: Obj Data Labs 07/05/23 04:14 OB - PN A/P Plan day: 2 Plan: routine care, discharge home and follow up 6 weeks Time Spent With Patient Time: Total time spent is greater than 50% in coordination of care (as documented) at patient's floor/unit and/or counseling patient: Time with patient: less than 15 minutes Exam Const: General: cooperative, healthy appearing and comfortable Orientat ion/consciousness: oriented to person, oriented to place and oriented to time GI: Inspection: normal to inspection
[2023-07-06 07:42] VITALS: BP 104/64; PULSE 100; RESP 16; TEMP 36.7; O2SAT 100
[2023-07-06] MEDS: MULTIVIT/MIN/PREN/FOL AC/IRON TABLET 1 TAB PO (08:32)
[2023-07-06] MEDS: POLYSACCHARIDE IRON COMPLEX 150 MG CAPSULE PO (08:32)
[2023-07-06] MEDS: DOCUSATE SODIUM 100 MG CAPSULE PO (08:32)
--- NOTE | 2023-07-06 15:12 | PC.NURSE ---
1130-Patient was given the opportunity to view the discharge video Mother & Baby Care, The First Two Weeks and to ask questions. Patient declined viewing the video and has been given the mother/baby guide for home reference.
[2023-07-08 10:01] VITALS: BP 116/77; PULSE 82; RESP 18; TEMP 37.2; O2SAT 100
== END 2023-07-06 14:35 | disposition home or self-care (01) | DRG 807 ==
LOC: ANHLDR 17:26 → ANHOB2 07-06 07:58 → ANHLDR 07-09 09:14 → ANHOB2 07-09 09:14
PROVIDERS: Admitting Provider Obstetrics & Gynecology; PCP Emergency Medicine; Visit Provider Obstetrics & Gynecology
DX: O30.033 Twin pregnancy, monochorionic/diamniotic, third trimester (principal); Z37.2 Twins, both liveborn; O70.1 Second degree perineal laceration during delivery; Z3A.38 38 weeks gestation of pregnancy
CPT/HCPCS: 36415; 85014; 85018; 85025; 86592; 86850; 86900; 86901; 88307; A9270; J2590; J2795; J7120